=== PATIENT | male | born 1975 | race Caucasian/White ===

== ENCOUNTER 2017-05-01 10:19 | Observation (INO) | payer OTHER ==
[2017-05-01] MEDS ORDERED: CLINDAMYCIN 900 MG/DEXTROSE 50 ML IV ONE (10:42)
[2017-05-01] MEDS ORDERED: ONDANSETRON 4 MG/2 ML VIAL IVP PRN (10:43)
[2017-05-01] MEDS ORDERED: NALOXONE HCL 0.4 MG/ML INJ IVP PRN (10:43)
[2017-05-01] MEDS ORDERED: ACETAMINOPHEN 500 MG TAB PO PRN (10:43)
[2017-05-01] MEDS ORDERED: ALBUTEROL 3 ML DEYVIAL IH PRN (10:43)
--- NOTE | 2017-05-01 10:43 | PDANEPAE ---
ANE History of Present Illness Liver Resection ANE Past Medical History - Cardiovascular History Hx Hypertension: No Hx Arrhythmias: No Hx Chest Pain: No Hx Coronary Artery / Peripheral Vascular Disease: No Hx CHF / Valvular Disease: No Hx Palpitations: No Cardiovascular History Comment: last two BP measurement on the high side of normal - Pulmonary History Hx COPD: No Hx Asthma/Reactive Airway Disease: No Hx Recent Upper Respiratory Infection: No Hx Oxygen in Use at Home: No Hx Sleep Apnea: No Sleep Apnea Screening Result - Last Documented: Negative - Neurologic History Hx Cerebrovascular Accident: No Hx Seizures: No Hx Dementia: No - Endocrine History Hx Diabetes: No - Renal History Hx Renal Disorders: No - Liver History Hx Hepatic Disorders: No - Neurological & Psychiatric Hx Hx Neurological and Psychiatric Disorders: Yes Neurological / Psychiatric History Comment: stress, anxiety - Cancer History Hx Cancer: No - Congenital Disorder History Hx Congenital Disorders: No - GI History Hx Gastrointestinal Disorders: No - Other Health History Other Health History: none - Chronic Pain History Chronic Pain: Yes (lower back issues that radiates to neck) - Surgical History Prior Surgeries: feb 24,hemorroidectmy. post and ant neck fusion 2011. pt broke neck, reduced flexability ANE Review of Systems Review of Systems: - Exercise capacity METS (RN): 4 METS ANE Patient History - Allergies Allergies/Adverse Reactions: amoxicillin Allergy (Verified 04/21/17 17:16) Rash Cephalosporins Allergy (Verified 04/21/17 17:16) Rash Penicillins Allergy (Verified 04/21/17 17:16) Rash - Home Medications Home Medications: Herbals/Supplements -Info Only 1 ea PO DAILY 04/21/17 [Last Taken Unknown] Levothyroxine [Synthroid 75 mcg (*)] 75 mcg PO DAILY06 04/21/17 [Last Taken Unknown] Multivitamins [Multivitamin (*)] 1 each PO DAILY 04/21/17 [Last Taken Unknown] - Smoking Hx Smoking Status: Never smoked - Family Anes Hx Family Hx Anesthesia Complications: none ANE Labs/Vital Signs - Vital Signs Height: 193.04 cm Weight: 98.43 kg ANE Physical Exam - Airway Neck exam: FROM Mallampati Score: Class 2 - Pulmonary Pulmonary: clear to auscultation - Cardiovascular Cardiovascular: regular rate and rhythym - ASA Status ASA Status: II ANE Anesthesia Plan Anesthesia Plan: general endotracheal anesthesia Lines/Monitors: arterial line, additional IV
[2017-05-01] MEDS ORDERED: LR 1,000 ML IV ONE (10:45)
--- NOTE | 2017-05-01 10:46 | PDHPUP ---
History & Physical Update H&P update statement: This history and physical update is based on an assessment of the patient which was completed after admission or registration (within 24 hours), but prior to the surgery/procedure. H&P update: H&P reviewed & patient examined, no change in patient's condition since H&P completed
[2017-05-01] MEDS ORDERED: MIDAZOLAM 2 MG/2 ML VIAL IVP ONE (10:51)
[2017-05-01] MEDS ORDERED: PROPOFOL 200 MG/20 ML VIAL ONE (10:57)
[2017-05-01] MEDS ORDERED: LIDOCAINE 2% 5 ML SDV ONE (10:58)
[2017-05-01] MEDS ORDERED: fentaNYL 250 MCG/5 ML INJ ONE (10:58)
[2017-05-01] MEDS ORDERED: ROCURONIUM 50 MG/5 ML VIAL ONE ×2 (10:59→12:29)
[2017-05-01] MEDS ORDERED: DEXAMETHASONE 4 MG/ML VIAL ONE (11:51)
[2017-05-01] MEDS ORDERED: ONDANSETRON 4 MG/2 ML VIAL ONE (11:51)
[2017-05-01] MEDS ORDERED: RANITIDINE 50 MG/2 ML VIAL ONE (11:52)
[2017-05-01] MEDS ORDERED: PHENYLEPHRINE HCL 100 MCG/ML SYR ONE (12:09)
[2017-05-01] MEDS ORDERED: BUPIVACAINE 0.5% 30 ML SDV ONE (12:32)
[2017-05-01] MEDS ORDERED: BUPIVACAINE 0.25% 30 ML SDV ONE (13:09)
[2017-05-01] MEDS ORDERED: SUGAMMADEX SODIUM 200 MG/2 ML VIAL IVP ONE (13:28)
--- NOTE | 2017-05-01 13:53 | POSTANESTH ---
Post Anesthetic Evaluation Cardiovascular Status: Normal, Stable Respiratory Status: Normal, Stable Level of Consciousness/Mental Status: Can Participate in Eval, Alert and Oriented Pain Control: Adequate, Prn Tx Ordered Nausea/Vomiting Control: Adequate, Prn Tx Ordered Complications Possibly Related to Anesthesia: None Noted
--- NOTE | 2017-05-01 13:57 | POSTOPPROG ---
Post Op Note Date of Operation: 05/01/17 Surgeon: Keagan Ricci (, FACS) Hand Umbrella Tipper: Loc Gutierrez MD Anesthesiologist: Duarte Goodman DO Anesthesia: GET(General Endotracheal) Pre-op Diagnosis: 9 cm right lobe liver hemangioma Post-op Diagnosis: same Procedure: laparoscopic resection segments 5 and 6 liver/cholecystectomy Findings: hemagioma confirmed by pathology Inf/Abcess present in the surg proc area at time of surgery?: No Specimen(s): liver/gallbladder
[2017-05-01] MEDS ORDERED: LR 1,000 ML IV SCH (14:00)
[2017-05-01] MEDS ORDERED: fentaNYL 100 MCG/2 ML INJ ONE (14:12)
[2017-05-01] MEDS: fentaNYL 100 MCG/2 ML INJ IVP PRN ×2 (14:13→14:19)
[2017-05-01] MEDS ORDERED: HYDROmorphONE/DILAUDID 1 MG/ML INJ ONE (14:52)
[2017-05-01] MEDS: HYDROmorphONE/DILAUDID 1 MG/ML INJ IVP PRN ×4 (14:57→18:21)
[2017-05-01 16:21] LABS: HEMATOCRIT 39.9 % (40.0-51.0); HEMOGLOBIN 13.9 g/dL (13.7-17.5)
[2017-05-01] MEDS: ONDANSETRON 4 MG/2 ML VIAL IVP PRN (18:25)
[2017-05-01] MEDS: LR 1,000 ML IV SCH (21:10)
--- NOTE | 2017-05-01 22:57 | GOP ---
[f rep st] OPERATIVE REPORT DATE OF OPERATION: 05/01/2017 SURGEON: Keagan Ricci MD, FACS CHILDHOOD DEVELOPMENT TEACHER: Alexandr Gutierrez MD ANESTHESIA: General endotracheal. ANESTHESIOLOGIST: Duarte Goodman DO PREOPERATIVE DIAGNOSIS: 1. 9 cm hemangioma, segments 5 and 6 of the liver. 2. Chronic cholecystitis. POSTOPERATIVE DIAGNOSIS: 1. 9 cm hemangioma, segments 5 and 6 of the liver. 2. Chronic cholecystitis. PROCEDURE PERFORMED: 1. Laparoscopic resection of segments 5 and 6 of the liver. 2. Laparoscopic cholecystectomy. FINDINGS: Firm fleshy tumor arising from the tip of the inferior segments (5 and 6) with frozen section confirming a benign-appearing hemangioma. Unremarkable-appearing gallbladder submitted for permanent section. ESTIMATED BLOOD LOSS: 100 mL. DESCRIPTION OF PROCEDURE: After informed consent was obtained, the patient was brought to the operating room and placed under general anesthesia. The patient was positioned in a 30-degree incline with a wedge over the right scapula and pelvis. This elevated his left shoulder which was draped across his chest. The abdomen was clipped, prepped and draped in the usual fashion. Before proceeding, a time-out and identification of patient was performed. 0.25% Marcaine was used to infiltrate all incision sites. A longitudinal incision was made below the umbilicus and ventral traction applied to the abdominal wall with penetrating towel clamps. A Veress needle was introduced into the peritoneal cavity and position was confirmed by saline infusion. A pneumoperitoneum was established with CO2 gas to a pressure of 15 mmHg. The Veress needle was withdrawn and replaced with a 5 mm bladeless trocar. Additional ports were placed in the subxiphoid position to the right of the falciform ligament, the right mid abdomen midclavicular line, and right abdomen anterior axillary line. The liver was visualized with a 5 mm 30-degree scope. The gallbladder appeared unremarkable. The hepatic flexure was not attached to the liver or the gallbladder. Because of the positioning of the patient, gravity allowed the intestines to move inferiorly and to the left. The liver was elevated and scored with cautery approximately 2 cm medial to the extent of the visible portion of the hemangioma. Intraoperative ultrasound was used to confirm the edges of the hemangioma as well as to identify the right hepatic vein branch that drained segments 5 and 6. Dissection was initiated along the inferior edge of the liver between the gallbladder and the tumor. Using the EnSeal, the liver capsule was crushed, cauterized, and divided sequentially. The 1st portal structure was identified approximately 3 cm deep to the liver draining segment 5. This was dispatched with single firing of the Endo-CATHERINE stapler using a vascular cartridge. Further dissection was performed posteriorly and anteriorly until the region of the hepatic vein was identified. A small amount of bleeding occurred from an inferior branch. This was secured with the EnSeal and the main hepatic vein was divided with a 2nd firing of the vascular stapler using the Endo-CATHERINE. The posterior triad was identified through blunt dissection and use of the EnSeal, and a 3rd firing of the CATHERINE stapler was used to secure the 2nd triad. The liver capsule was then completely divided and the specimen . Spot cautery was used to touch up the edge of the cut portion of the liver. There was no apparent bile drainage. The tumor specimen was retrieved with an Endo pouch through the upper abdominal port, which had been converted to a 12 mm port, and the incision was extended to a length of approximately 5 cm to accommodate the rather fleshy specimen. Specimen was submitted for frozen section as well as permanent section and Dr. Fernandez felt this represented a hemangioma which was the expected diagnosis. While we were waiting for frozen section, cholecystectomy was performed as follows. The fundus was retracted cephalad. The infundibulum was manipulated anteriorly and posteriorly wile the peritoneum was dissected away from the cystic duct circumferentially. The cystic artery presented posteriorly. This was dispatched with the EnSeal device. The cystic duct was clearly identified where it entered the gallbladder. It was doubly hemoclipped and divided. The gallbladder was then dissected away from the liver edge using cautery dissection. It was retrieved through the upper midline port site and submitted for permanent section. The operative field was irrigated and aspirated until the effluent was clear. Hemostasis appeared secure. Pneumoperitoneum was evacuated. All ports were removed. The upper port site was closed at the fascia with interrupted 0 Vicryl sutures. The remaining incisions were closed with 4-0 Monocryl suture in a subcuticular fashion for the skin. Topical Mastisol and Steri-Strips were applied. Needle, sponge, and instrument count were correct. COMPLICATIONS: None. /[id number]/MODL MTDD
[2017-05-02] MEDS: traMADol 50 MG TAB PO PRN ×2 (00:01→13:42)
[2017-05-02 05:47] LABS: % IMMATURE GRANULYOCYTES 0.3 % (0.0-1.1); ABSOLUTE IMMATURE GRANULOCYTES 0.04 10^3/uL (0.00-0.10); ADD DIFF? NO; ADD MORPH? NO; ADD SCAN? NO; ATYPICAL LYMPHOCYTE FLAG 0 (0-99); FRAGMENT RBC FLAG 0 (0-99); HEMATOCRIT 39.4 % (40.0-51.0); HEMOGLOBIN 13.8 g/dL (13.7-17.5); LEFT SHIFT FLG 0 (0-99); LIPEMIA HEMOLYSIS FLAG 90 (0-99); MEAN CELL HEMOGLOBIN 31.6 pg (27.9-34.1); MEAN CELL VOLUME 90.2 fL (81.5-99.8); MEAN PLATELET VOLUME 10.7 fL (8.7-11.7); PLATELET CLUMPS FLAG 0 (0-99); PLATELET COUNT 188 10^3/uL (150-400); RED BLOOD CELL COUNT 4.37 10^6/uL (4.40-6.38); RED CELL DISTRIBUTION WIDTH 12.7 % (11.5-15.2)
[2017-05-02 05:56] LABS: INR 1.11 (0.83-1.16); PROTIME(PATIENT) 14.5 SEC (12.0-15.0)
[2017-05-02] MEDS: LEVOTHYROXINE 75 MCG TAB PO SCH (05:56)
[2017-05-02] MEDS ORDERED: LEVOTHYROXINE 75 MCG TAB PO SCH (06:00)
[2017-05-02] MEDS ORDERED: NON-FORMULARY NEW DRUG PO SCH (06:00)
[2017-05-02] MEDS: LR 1,000 ML IV SCH (06:48)
[2017-05-02] MEDS: ONDANSETRON 4 MG/2 ML VIAL IVP PRN ×2 (08:38→13:42)
[2017-05-02] MEDS: HYDROmorphONE/DILAUDID 1 MG/ML INJ IVP PRN (08:39)
[2017-05-02] MEDS: ENOXAPARIN 40 MG/0.4 ML SYR SC SCH ×2 (08:40→11:07)
--- NOTE | 2017-05-02 10:30 | SOAPPROG ---
SOAP Progress Note Assessment/Plan: Assessment: stable with post op nausea/vomitting requiring parenteral narcotics for pain control Plan: Trial of oral narcotics/attempt to advance diet anticipate discharge in 24-48 hours 05/02/17 10:29 Subjective: nauseated/vomitted x 2 last night denies flatus/burping some Objective: Vital Signs Temp Pulse Resp BP Pulse Ox 36.8 C 80 16 135/83 H 96 05/02/17 07:26 05/02/17 07:26 05/02/17 07:26 05/02/17 07:26 05/02/17 07:26 Laboratory Results 05/02/17 05:35 05/01/17 05/02/17 05/03/17 05:59 05:59 05:59 Intake Total 2100 1146 Output Total 2275 520 Balance -175 626 PT 14.5 SEC (12.0-15.0) 05/02/17 05:35 INR 1.11 (0.83-1.16) 05/02/17 05:35 - Pending Discharge Pending Discharge Within 48 Hours: Yes Pending Discharge Date: 05/04/17 Pending Discharge Time: 11:00 Physical Exam - Physical Exam General Appearance: alert, mild distress Respiratory: lungs clear, normal breath sounds, decreased breath sounds Cardiac/Chest: regular rate, rhythm Abdomen: normal bowel sounds, soft, distended, other (incision sites uncomplicated) Male Genitalia: deferred Rectal: deferred Neuro/Psych: alert, normal mood/affect, oriented x 3 ICD10 Worksheet Patient Problems: Problems Problem Status Onset Cavernous hemangioma of liver Acute PONV (postoperative nausea and vomiting) Acute - ICD10 Problem Qualifiers (1) Cavernous hemangioma of liver (2) PONV (postoperative nausea and vomiting)
[2017-05-02] MEDS ORDERED: HYDROmorphONE/DILAUDID 2 MG TAB PO PRN (10:32)
[2017-05-02] MEDS ORDERED: ACETAMINOPHEN/ASA/CAFFEINE 1 EACH TAB PO PRN (10:33)
[2017-05-02] MEDS ORDERED: BISACODYL 10 MG SUPP PR PRN (10:33)
[2017-05-02] MEDS ORDERED: POLYETHYLENE GLYCOL 3350 17 GM PKT PO PRN (10:33)
[2017-05-02] MEDS ORDERED: LACTULOSE 20 GM/30 ML UDCUP PO PRN (10:33)
[2017-05-02] MEDS ORDERED: MAGNESIUM HYDROXIDE 30 ML UDCUP PO PRN (10:33)
--- NOTE | 2017-05-02 13:17 | ASMTCMCOM ---
CM Note CM Note Notes: Spoke w/RN, anticipate pt will dc home independent when medically stable. CM available for any changes Date Signed: 05/02/2017 01:16 PM Electronically Signed By:Sierra Rodriguez RN
[2017-05-02] MEDS: IBUPROFEN 600 MG TAB PO PRN ×2 (16:27→22:22)
[2017-05-02] MEDS: SENNOSIDES/DOCUSATE SODIUM TAB PO SCH (19:47)
[2017-05-03] MEDS: LEVOTHYROXINE 75 MCG TAB PO SCH (05:14)
[2017-05-03 05:33] LABS: HEMATOCRIT 41.3 % (40.0-51.0); HEMOGLOBIN 14.6 g/dL (13.7-17.5); MEAN CELL HEMOGLOBIN CONCENTR. 35.4 g/dL (32.4-36.7); MEAN CELL VOLUME 90.6 fL (81.5-99.8); RED BLOOD CELL COUNT 4.56 10^6/uL (4.40-6.38); RED CELL DISTRIBUTION WIDTH 12.9 % (11.5-15.2)
[2017-05-03] MEDS: IBUPROFEN 600 MG TAB PO PRN (05:44)
[2017-05-03 08:30] VITALS: BP 122/73; PULSE 71; RESP 16; TEMP 97.7; O2SAT 95
--- NOTE | 2017-05-03 08:35 | PDDCSUM ---
Discharge Summary Discharge Summary: #[id number] Discharge summary dictated Katlyn Ricci MD, FACS
--- NOTE | 2017-05-03 08:56 | GDS ---
[f rep st] DISCHARGE SUMMARY DISCHARGE DIAGNOSES: 1. Right hepatic tumor, inferior segments. 2. Chronic cholecystitis. 3. Back pain. 4. Postoperative nausea and vomiting. PROCEDURES PERFORMED: 1. 05/01, laparoscopic resection, inferior segments right lobe of liver (segments 5 and 6). 2. Laparoscopic cholecystectomy. HOSPITAL COURSE: For details of admission history and physical please see dictated summary. Briefly, the patient is a 42-year-old male, who was admitted for resection of an enlarging right hepa tic mass. This has been observed for many years and was felt to be benign, but was enlarging on sequ ential imaging studies. At the time of surgery, it was estimated to be 9 cm in size, and occupied th e tip of the right lobe of the liver, in the inferior segments 5 and 6. He had gallbladder polyps an d symptoms of biliary colic intermittently, and I recommended laparoscopic cholecystectomy at the teodoro e of his liver resection. This was performed on the date of admission, with minimal blood loss (100 mL). His postoperative course was remarkable for nausea, vomiting that responded to antiemetics. He was somewhat intolerant of narcotics and was switched from Dilaudid to Ultram, which improved his pa in along with ibuprofen. Much of his pain was related to his back, for which he had been seeing Dr. Caty Mccauley, and she had recommended physical therapy, and he was partly through his physical therap y course when he proceeded with this surgery. He will resume physical therapy without resistance gre ater than 25 pounds lifting for the next 6 weeks and after that will be unrestricted from this operat ion. On the morning of discharge, he was afebrile, ambulatory, his incisions were healing well witho ut sign of infection. His postoperative hematocrit was 41%. DISCHARGE MEDICATIONS: Ultram 50 mg p.o. q.6 hours p.r.n. pain, Senokot-S 1 p.o. b.i.d., ibuprofen 6 00 mg p.o. q.6 hours p.r.n. pain. The patient will resume levothyroxine 75 mcg p.o. daily, multivita mins and herbal supplements. FOLLOW UP: The patient will follow up in my office in the upcoming week. CONDITION AT TIME OF DISCHARGE: Satisfactory. /[id number]/MODL
[2017-05-03] MEDS: SENNOSIDES/DOCUSATE SODIUM TAB PO SCH (10:31)
--- NOTE | 2017-05-03 14:42 | ASDISCHSUM ---
Discharge Information Plan Status:Home with No Needs Medically Cleared to Leave: Discharge Date:05/03/2017 11:22 AM CM D/C Disposition:Home, Routine, Self-Care ADT D/C Disposition:Home, Routine, Self-Care Projected Discharge Date:05/03/2017 11:22 AM Transportation at D/C: Discharge Delay Reason: Follow-Up Date:05/03/2017 11:22 AM Discharge Slot: Final Diagnosis: Placement Information Patient Contact Information Contact Name:MAYITO Relationship:Grandparent Address:[address] [place] [address] City:[place] Alternate Phone: [facility]/Zip Code:[place] [address] Email: Financial Information Financial Class:[facility] Primary Plan Desc:[employer] OPEN [employer] LOCAL Primary Plan Number:[id number] Secondary Plan Desc: Secondary Plan Number: Assessment Information [facility] CM Progress Note CM Note CM Note Notes: Spoke w/RN, anticipate pt will dc home independent when medically stable. CM available for any changes Date Signed: 05/02/2017 01:16 PM Electronically Signed By:Sierra Rodriguez RN Intervention Information
== END 2017-05-03 11:22 | disposition home or self-care (01) ==
LOC: FSGY 10:19 → EDSTATUS 12:30 → F3E 15:50 → INTOOBSV 15:50 → OBSVTOIN 05-02 10:38
PROVIDERS: ADMIT Surgery; ATTEND Surgery
DX: K81.1 Chronic cholecystitis (principal); D18.03 Hemangioma of intra-abdominal structures; R11.2 Nausea with vomiting, unspecified; M54.9 Dorsalgia, unspecified
CPT/HCPCS: G0378; J1100; J1170; J1650; J2250; J2370; J2405; J2704; J2780; J3010

== ENCOUNTER → 2017-08-18 | Outpatient (CLI) | payer OTHER | LOC: BMCIMAGING 17:48 | PROVIDERS: ATTEND Family Medicine | DX: S62.324A Displaced fracture of shaft of fourth metacarpal bone, right hand, initial encounter for closed fracture (principal) ==